=== PATIENT | male | born 1945 | race Caucasian/White ===

== ENCOUNTER → 2017-03-23 | Outpatient (CLI) | payer MEDICARE ==
[~2017-03-23] MED LIST: AMIO200T42 PO; AMIO400T5 PO; ASPI-515 PO; BRIM5DRO3 EACHEYE; CALC625T23 PO; CHOL2000 PO; DORZ10DR3 EACHEYE; DOXY20TA5 PO; FLAX100013 PO; HYDR-3307 PO; LATA2.5D3 EACHEYE; LISI30TA4 PO; METO25TA35 PO; MULT-658 PO; OMEP-110 PO; SIMV80TA3 PO; WARF5TAB PO; [UNRECOGNIZED DRUG - OTHER] PO
== END | disposition home or self-care (01) ==
LOC: CFH 10:01
PROVIDERS: ATTEND Internal Medicine Cardiovascular Disease
DX: I34.8 Other nonrheumatic mitral valve disorders (principal); I10 Essential (primary) hypertension; E78.5 Hyperlipidemia, unspecified; I48.91 Unspecified atrial fibrillation; Z95.1 Presence of aortocoronary bypass graft; Z95.2 Presence of prosthetic heart valve
CPT/HCPCS: 93306

== ENCOUNTER → 2018-03-19 | Outpatient (CLI) | payer MEDICARE ==
[~2018-03-19] MED LIST changes: +DORZ10DR26 EACHEYE; -DORZ10DR3 EACHEYE; +SIMV80TA18 PO; -SIMV80TA3 PO
== END | disposition home or self-care (01) ==
LOC: CFH 09:42
PROVIDERS: ATTEND Internal Medicine Cardiovascular Disease
DX: I05.9 Rheumatic mitral valve disease, unspecified (principal); I48.91 Unspecified atrial fibrillation; I10 Essential (primary) hypertension; E78.5 Hyperlipidemia, unspecified; I25.10 Atherosclerotic heart disease of native coronary artery without angina pectoris; Q23.1 Congenital insufficiency of aortic valve; Z95.818 Presence of other cardiac implants and grafts; Z95.2 Presence of prosthetic heart valve
CPT/HCPCS: 93306